=== PATIENT | male | born 1995 | race African-American/Black ===

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

== ENCOUNTER 2017-05-20 10:12 | Emergency (ER) | payer MEDICAID ==
[~2017-05-20] VITALS: Ht 182.9 cm; Wt 95.3 kg
[2017-05-20] MEDS ORDERED: Oseltamivir 75mg cap ORAL STA (10:33)
[2017-05-20 10:34] VITALS: BP 113/73
--- NOTE | 2017-05-20 10:34 | Emergency Room Report ---
History of Present Illness General Chief Complaint: Flu Like Symptoms Source: Patient, Medical Record Present Illness HPI Patient with several days of sore throat, muscle aches, headache, feeling feverish. No flu shot. Minimal productive phlegm. No NVD. No rashes. Headache rated 6/10, mostly constant. No medications taken. Hears himself breathing but denies wheezes. No dysuria. No major medical problems. Allergies: Coded Allergies: No Known Allergies (Unverified , 09/25/13) Patient History Past Medical History: see triage record Social History: Denies: smoking Social History Narrative at home Reviewed Nursing Documentation: PMH: Agreed; PSxH: Agreed Nursing Documentation-PMH Past Medical History: No History, Except For Review of Systems All Other Systems: negative except mentioned in HPI Physical Exam Vital Signs Date Time Temp Pulse Resp B/P (MAP) Pulse Ox O2 Delivery O2 Flow Rate FiO2 05/20/17 10:19 98.2 87 18 116/71 96 Room Air 98.2 General Appearance: well appearing, no apparent distress Head: normocephalic, atraumatic ENT: hearing grossly normal, normal voice, moist mucus membranes, pharyngeal erythema Neck: full range of motion, supple Respiratory: no respiratory distress, speaking full sentences, other - no wheezing Musculoskeletal: no calf tenderness Neurologic: alert, normal gait Psychiatric: mood/affect normal Skin: no rash Medical Decision Making Diagnostic Impression: Primary Impression: Influenza ER Course Patient with URI sy. DDx: viral, influenza, bronchitis amongst others. Symptom complex suggest influenza. No bronchospasm or evidence of pneumonia. Treated for pain and with Tamiflu. Improved, Patient stable for outpatient observation and treatment. Last Vital Signs Date Time Temp Pulse Resp B/P (MAP) Pulse Ox O2 Delivery O2 Flow Rate FiO2 05/20/17 10:50 98.2 90 18 113/73 96 Room Air 208.8 Status: improved Disposition: HOME, SELF-CARE Condition: Stable Scripts Ibuprofen* (MOTRIN*) 600 Mg Tablet 600 MG ORAL Q6H PRN for For Pain, #16 TAB Prov: Phil Landaverde M.D. 05/20/17 Guaifenesin/Codeine Phos* (ROBITUSSIN AC*) 118 Ml Liquid 1 TSP ORAL Q6H PRN for For Cough, #90 ML 0 Refills Prov: Phil Landaverde M.D. 05/20/17 Oseltamivir Phosphate (Tamiflu) 75 Mg Capsule 75 MG ORAL TWICE A DAY, #10 CAP Prov: Phil Landaverde M.D. 05/20/17 Phil Landaverde M.D. May 20, 2017 10:34
[2017-05-20] MEDS ORDERED: GUAIFENESIN-CO118 M1 ORAL (10:36)
[2017-05-20] MEDS ORDERED: TAMIFLU75 MG ORAL (10:36)
[2017-05-20] MEDS ORDERED: IBUPROFEN600 MG ORAL (10:36)
[2017-05-20 10:50] VITALS: BP 113/73
== END 2017-05-20 10:50 | disposition home or self-care (01) ==
LOC: EMR 10:45
DX: J11.1 Influenza due to unidentified influenza virus with other respiratory manifestations (principal)
CPT/HCPCS: 99284

== ENCOUNTER 2017-11-22 17:52 | Emergency (ER) | payer MEDICAID ==
[~2017-11-22] VITALS: Ht 182.9 cm; Wt 95.3 kg
[~2017-11-22 17:52] MED LIST changes: +GUAIFENESIN-CO118 M1 ORAL; +IBUPROFEN600 MG ORAL; +TAMIFLU75 MG ORAL
[2017-11-22 18:00] VITALS: BP 139/68
[2017-11-22] MEDS ORDERED: Lidocaine 2% Visc 15ml soln ORAL ONE (19:30)
[2017-11-22 20:32] LABS: BASOPHILS % (AUTO) 1.4 % (0.0-2.0); EOSINOPHILS % (AUTO) 0.2 % (0.0-3.0); HEMATOCRIT 47.3 % (42.0-52.0); LYMPHOCYTES % (AUTO) 8.4 % (20.0-45.0); MEAN CORPUSCULAR VOLUME 79 FL (80-99); MONOCYTES % (AUTO) 5.4 % (1.0-10.0); NEUTROPHILS % (AUTO) 84.5 % (45.0-75.0); PLATELET COUNT 177 K/UL (150-450); RED BLOOD COUNT 5.96 M/UL (4.70-6.10); RED CELL DISTRIBUTION WIDTH 12.6 % (11.6-14.8); WHITE BLOOD COUNT 12.6 K/UL (4.8-10.8)
[2017-11-22 20:46] LABS: ANION GAP 10 mmol/L (5-15); BLOOD UREA NITROGEN 8 mg/dL (7-18); CALCIUM 9.8 MG/DL (8.5-10.1); CARBON DIOXIDE 27 MMOL/L (21-32); CHLORIDE 101 MMOL/L (98-107); CREATININE 1.1 MG/DL (0.55-1.30); POTASSIUM 3.9 MMOL/L (3.5-5.1); SODIUM 138 MMOL/L (136-145)
--- NOTE | 2017-11-22 20:53 | Emergency Room Report ---
History of Present Illness General Chief Complaint: Upper Respiratory Illness Source: Patient Present Illness HPI 22-year-old male presents to the emergency department complaining of 10 out of 10 in severity sore throat, thigh pain, chest pain and headache 2 days. Patient reports that his initial symptom was the sore throat and continues to be most prominent. Patient states other symptoms have been progressive. Patient reports subjective fevers he denies chills he states he has not taken any medication today. Patient also reports history of sickle cell disease, states he hasn't had a flare up since early teens. Patient denies recent travel or ill contacts. Patient states his pain is exacerbated upon swallowing food or water. He has not found any relieving factors at this time. He denies photophobia, neck pain or stiffness. Patient denies palpitations or shortness of breath. Denies cardiac history. pt. states that over the last hour his thighs have become very painful and stiff to the point that he can barely walk. Denies similar episodes of leg pain in the past. Allergies: Coded Allergies: No Known Allergies (Unverified , 09/25/13) Patient History Past Medical History: see triage record Past Surgical History: none Pertinent Family History: none Immunizations: UTD Reviewed Nursing Documentation: PMH: Agreed; PSxH: Agreed Nursing Documentation-PMH Past Medical History: No History, Except For Review of Systems All Other Systems: negative except mentioned in HPI Physical Exam Vital Signs Date Time Temp Pulse Resp B/P (MAP) Pulse Ox O2 Delivery O2 Flow Rate FiO2 11/22/17 17:56 99.0 115 20 139/68 95 Room Air 99.0 Sp02 EP Interpretation: reviewed, normal General Appearance: no apparent distress, alert, GCS 15, non-toxic Head: normocephalic, atraumatic Eyes: bilateral eye normal inspection, bilateral eye PERRL ENT: hearing grossly normal, normal voice, TMs + canals normal, uvula midline, dry mucus membranes, tonsillar swelling, pharyngeal erythema, tonsillar exudate - exudate noted on the right tonsil. Neck: full range of motion, no meningismus Respiratory: chest non-tender, lungs clear, normal breath sounds, no respiratory distress, no wheezing, speaking full sentences Cardiovascular #1: no edema, normal capillary refill, tachycardia Gastrointestinal: normal bowel sounds, non tender, soft Musculoskeletal: back normal, normal range of motion, other - pt. has compensatory gait/ limping, tender - bilateral thighs and knees. Neurologic: alert, oriented x3, responsive, motor strength/tone normal, sensory intact, speech normal, grossly normal Psychiatric: judgement/insight normal Skin: normal color, no rash, warm/dry, well hydrated Lymphatic: no adenopathy Medical Decision Making PA Attestation Dr. Taylor is my supervising Physician whom patient management has been discussed with. Diagnostic Impression: Primary Impression: Pharyngitis, acute Qualified Codes: J02.0 - Streptococcal pharyngitis Additional Impression: Myalgia ER Course 22-year-old male presents to the emergency department complaining of 10 out of 10 in severity sore throat, thigh pain, chest pain and headache 2 days. Patient reports that his initial symptom was the sore throat and continues to be most prominent. Patient states other symptoms have been progressive. Patient reports subjective fevers he denies chills he states he has not taken any medication today. Patient also reports history of sickle cell disease, states he hasn't had a flare up since early teens. Patient denies recent travel or ill contacts. Patient states his pain is exacerbated upon swallowing food or water. He has not found any relieving factors at this time. He denies photophobia, neck pain or stiffness. Patient denies palpitations or shortness of breath. Denies cardiac history. pt. states that over the last hour his thighs have become very painful and stiff to the point that he can barely walk. Denies similar episodes of leg pain in the past. Ddx considered but are not limited to: pharyngitis, strep, [employer], ludwigs angina, URI, sickle cell crisis, acute chest syndrome, dehydration just to name a few. Vital signs: pt. is tachycardic, remaining vs are WNL, pt. is afebrile H&PE are most consistent with: pharyngitis presumed strep.- also suspicious for possible sickle cell exacerbation. ORDERS: -Reticulocyte count WNL -CBC: normal H&H, elevated wbc's 12.9 -CMP: unremarkable - electrolytes ok -EK Sinus tach- reviewed by Dr. Ochoa -CXR: unremarkable ED INTERVENTIONS: -1 liter NS Bolus -Tylenol PO - Viscous lidocaine DISCHARGE: At this time pt. is stable for d/c to home. Will provide printed patient care instructions, and any necessary prescriptions. Care plan and follow up instructions have been discussed with the patient prior to discharge. Labs Test 11/22/17 19:54 White Blood Count 12.6 K/UL (4.8-10.8) Red Blood Count 5.96 M/UL (4.70-6.10) Hemoglobin 16.0 G/DL (14.2-18.0) Hematocrit 47.3 % (42.0-52.0) Mean Corpuscular Volume 79 FL (80-99) Mean Corpuscular Hemoglobin 26.8 PG (27.0-31.0) Mean Corpuscular Hemoglobin Concent 33.8 G/DL (32.0-36.0) Red Cell Distribution Width 12.6 % (11.6-14.8) Platelet Count 177 K/UL (150-450) Mean Platelet Volume 7.7 FL (6.5-10.1) Neutrophils (%) (Auto) 84.5 % (45.0-75.0) Lymphocytes (%) (Auto) 8.4 % (20.0-45.0) Monocytes (%) (Auto) 5.4 % (1.0-10.0) Eosinophils (%) (Auto) 0.2 % (0.0-3.0) Basophils (%) (Auto) 1.4 % (0.0-2.0) Reticulocyte Count 1.1 % (0.0-2.0) Sodium Level 138 MMOL/L (136-145) Potassium Level 3.9 MMOL/L (3.5-5.1) Chloride Level 101 MMOL/L (98-107) Carbon Dioxide Level 27 MMOL/L (21-32) Anion Gap 10 mmol/L (5-15) Blood Urea Nitrogen 8 mg/dL (7-18) Creatinine 1.1 MG/DL (0.55-1.30) Estimat Glomerular Filtration Rate > 60 mL/min (>60) Glucose Level 108 MG/DL (74-106) Calcium Level 9.8 MG/DL (8.5-10.1) EKG Diagnostic Results EP Interpretation: Dr. Ochoa Rate: tachycardiac - 109bpm Rhythm: NSR ST Segments: no acute changes ASA given to the pt in ED: No PA Scribe Text This Interpretation was scribed by ALEX Barclay. Chest X-Ray Diagnostic Results Chest X-Ray Diagnostic Results : Chest X-Ray Ordered: Yes # of Views/Limited/Complete: 1 View Indication: Chest Pain EP Interpretation: Yes ALEX Xray: Interpretation reviewed, by supervising MD, and agrees with findings. Interpretation: no consolidation, no effusion, no pneumothorax, no acute cardiopulmonary disease Impression: No acute disease Electronically Signed by: Mary Barclay PA-C Last Vital Signs Date Time Temp Pulse Resp B/P (MAP) Pulse Ox O2 Delivery O2 Flow Rate FiO2 11/22/17 19:31 99.0 11/22/17 18:00 115 20 Room Air 11/22/17 18:00 139/68 95 Disposition: HOME, SELF-CARE Condition: Stable Scripts Acetaminophen* (TYLENOL EXTRA STRENGTH*) 500 Mg Tablet 500 MG ORAL Q6H, #20 TAB 0 Refills Prov: Mary Barclay 11/22/17 Amoxicillin* (AMOXIL*) 500 Mg Capsule 500 MG ORAL BID for 10 Days, #20 CAP Prov: Mary Barclay 11/22/17 Lidocaine HCl 2% Viscous (Lidocaine HCl 2% Viscous) 100 Ml Solution 15 ML ORAL QID for pain, #240 ML Prov: Mary Barclay 11/22/17 Referrals: [facility]ERR[facility] (PCP) Departure Forms: Return to Work Return to Work Date: Nov 26, 2017 Work Restrictions: None Return to Full Activity: Nov 26, 2017 Patient Instructions: Pharyngitis Additional Instructions: Take medications as directed. Follow up with a Primary Care Provider in 3-5 days, even if your symptoms have resolved. --Please review list of primary care clinics, if you do not already have a primary care provider Return sooner to ED if new symptoms occur, or current symptoms become worse. Do not drink alcohol, drive, or operate heavy machinery while taking [ ] as this may cause drowsiness. - Please note that this Emergency Department Report was dictated using Wiseryouhone operator technology software, occasionally this can lead to erroneous entry secondary to interpretation by the dictation equipment. Mary Barclay Nov 22, 2017 20:52
--- NOTE | 2017-11-22 21:24 | Diagnostic Imaging Report ---
PROCEDURE: FILM CXR 1 VIEW HISTORY: 22-year-old male with chest pain. COMPARISON: Chest radiograph 09/25/2013 TECHNIQUE: Frontal view of the chest was obtained. FINDINGS: Limited by technique. Cardiomediastinal silhouette is within normal limits. No evidence of focal consolidation, pleural effusion, or pneumothorax. Bones are unremarkable for age. IMPRESSION: Unremarkable single view chest.
[2017-11-22] MEDS ORDERED: LIDOCAINE VISC100 ML ORAL (21:43)
[2017-11-22] MEDS ORDERED: AMOXICILLIN500 MG ORAL (21:43)
[2017-11-22] MEDS ORDERED: TYLENOL EXTRA500 MG ORAL (21:43)
[2017-11-22 21:49] VITALS: BP 128/63
[2017-11-22 21:50] VITALS: BP 128/63
== END 2017-11-22 21:51 | disposition home or self-care (01) ==
LOC: EMR 18:34
DX: J02.0 Streptococcal pharyngitis (principal); M79.10 Myalgia, unspecified site
CPT/HCPCS: 36415; 71045; 80048; 85025; 85044; 93005; 96360; 99284

== ENCOUNTER 2018-04-15 03:53 | Emergency (ER) | payer MEDICAID ==
[~2018-04-15] VITALS: Ht 180.3 cm; Wt 106.6 kg
[~2018-04-15 03:53] MED LIST changes: +LIDOCAINE VISC100 ML ORAL; +TYLENOL EXTRA500 MG ORAL
[2018-04-15 04:03] VITALS: BP 113/66
--- NOTE | 2018-04-15 04:03 | NUR ---
ED Nurse Note: Patient ambulated to ED with c/o headache and chest pain upon coughing since 0630 yesterday. pt stated 10/10 headache when coughing and 8/10 chest pain when coughing. pt vs stable. will continue to monitor
[2018-04-15] MEDS ORDERED: TAMIFLU75 MG ORAL (04:25)
[2018-04-15] MEDS ORDERED: IBUPROFEN600 MG ORAL (04:25)
--- NOTE | 2018-04-15 04:26 | Emergency Room Report ---
History of Present Illness General Chief Complaint: Upper Respiratory Illness Source: Patient Present Illness HPI This is a 23-year-old male with a history of sickle cell trait. Fever, cough, chest pain, headache. Onset yesterday. He said he had a very high fever. It broke with TheraFlu. No nausea no vomiting. Has a nonproductive cough. Having chest pain and headache. Also with congestion. Denies any other complaint. no Sick contact. Allergies: Coded Allergies: No Known Allergies (Unverified , 09/25/13) Patient History Past Medical History: see triage record, old chart reviewed Past Surgical History: none Pertinent Family History: none Social History: Denies: smoking Immunizations: other Reviewed Nursing Documentation: PMH: Agreed Nursing Documentation-PMH Past Medical History: No History, Except For Review of Systems Constitutional: Reports: chills, fever Eye: Denies: eye pain, blurred vision ENT: Reports: nose congestion; Denies: ear pain, throat swelling Respiratory: Reports: cough; Denies: shortness of breath Cardiovascular: Reports: chest pain; Denies: palpitations Gastrointestinal: Denies: abdominal pain, diarrhea, nausea, vomiting Musculoskeletal: Denies: back pain, joint pain Skin: Denies: rash Neurological: Denies: headache, numbness Endocrine: Denies: increased thirst, increased urine Hematologic/Lymphatic: Denies: easy bruising All Other Systems: negative except mentioned in HPI Physical Exam Vital Signs Date Time Temp Pulse Resp B/P (MAP) Pulse Ox O2 Delivery O2 Flow Rate FiO2 04/15/18 03:56 98.1 97 15 113/66 94 Room Air vitals normal Sp02 EP Interpretation: reviewed, normal General Appearance: well appearing, no apparent distress, alert Head: normocephalic, atraumatic Eyes: bilateral eye PERRL, bilateral eye EOMI ENT: hearing grossly normal, normal pharynx Neck: full range of motion, supple, no meningismus Respiratory: chest non-tender, lungs clear, normal breath sounds Cardiovascular #1: regular rate, rhythm, no murmur Gastrointestinal: normal bowel sounds, non tender, no mass, no organomegaly, no bruit, non-distended Musculoskeletal: back normal, gait/station normal, normal range of motion Psychiatric: mood/affect normal Skin: warm/dry Medical Decision Making Diagnostic Impression: Primary Impression: Influenza-like illness ER Course Patient with flulike illness. Because of sickle cell trait, we'll put him on Tamiflu. No evidence of any sepsis, meningitis, pneumonia to name a few. Last Vital Signs Date Time Temp Pulse Resp B/P (MAP) Pulse Ox O2 Delivery O2 Flow Rate FiO2 04/15/18 04:03 97 15 Room Air 04/15/18 04:03 98.1 113/66 94 Status: improved Disposition: HOME, SELF-CARE Condition: Stable Scripts Ibuprofen* (MOTRIN*) 600 Mg Tablet 600 MG ORAL THREE TIMES A DAY, #30 TAB 0 Refills Prov: Deion Salinas MD 04/15/18 Oseltamivir Phosphate (Tamiflu) 75 Mg Capsule 75 MG ORAL TWICE A DAY, #10 CAP Prov: Deion Salinas MD 04/15/18 Referrals: [facility]ERR[facility] (PCP) Additional Instructions: Increase fluids. Rest. Follow-up with your Dr. in 3-5 days if not better. Return if symptom worsen. Deion Salinas MD Apr 15, 2018 04:26
[2018-04-15 04:28] VITALS: BP 113/66
--- NOTE | 2018-04-15 04:28 | NUR ---
ER DISCHARGE NOTE: Patient is cleared to be discharged per ERMD, pt is aox4, on room air, with stable vital signs. pt was given dc and prescription instructions, pt was able to verbalize understanding, pt id band removed without complications. pt is able to ambulate with steady gait. pt took all belongings.
== END 2018-04-15 04:28 | disposition home or self-care (01) ==
LOC: EMR 04:13
DX: J11.1 Influenza due to unidentified influenza virus with other respiratory manifestations (principal)
CPT/HCPCS: 99282

== ENCOUNTER 2018-06-21 12:09 | Emergency (ER) | payer SELFPAY ==
[~2018-06-21] VITALS: Ht 182.9 cm; Wt 102.1 kg
[2018-06-21] MEDS ORDERED: NKM (12:18)
[2018-06-21 12:22] VITALS: BP 117/73
--- NOTE | 2018-06-21 12:23 | NUR ---
ED Nurse Note: Patient walked in to ER c/o both hands rash for 2 weeks. pt aao x4 and ambulatory. both hands rash noted without bleeding or swelling. pt c/o itching as well. calm and cooperative.
--- NOTE | 2018-06-21 12:54 | Emergency Room Report ---
History of Present Illness General Chief Complaint: Skin Rash/Abscess Present Illness HPI 23-year-old male presents to the emergency department complaining of itchy nonpainful rash to the bilateral hands with small little bumps progressive 2 days. 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 Pt. denies fevers, chills or swollen tender lymph nodes. Denies lesions/rashes elsewhere on the body. Denies new medications or body washes or creams. Denies swelling of the lips, tongue , throat or airway. Denies wheezing, or shortness of breath. Denies recent travel, recent illness or ill contacts. denies blisters, oral lesions, or sloughing of the skin. Denies hx of similar symptoms in the past. Allergies: Coded Allergies: No Known Allergies (Unverified , 09/25/13) Patient History Past Medical History: see triage record Past Surgical History: none Pertinent Family History: none Immunizations: UTD Reviewed Nursing Documentation: PMH: Agreed; PSxH: Agreed Review of Systems All Other Systems: negative except mentioned in HPI Physical Exam Vital Signs Date Time Temp Pulse Resp B/P (MAP) Pulse Ox O2 Delivery O2 Flow Rate FiO2 06/21/18 12:15 98.2 60 14 93 06/21/18 12:22 117/73 Room Air Sp02 EP Interpretation: reviewed, normal General Appearance: no apparent distress, alert, GCS 15, non-toxic Head: normocephalic, atraumatic Eyes: bilateral eye normal inspection, bilateral eye PERRL ENT: hearing grossly normal, normal voice, other - no swelling of the lips or tongue Neck: full range of motion, other Respiratory: chest non-tender, lungs clear, normal breath sounds, no wheezing, speaking full sentences Cardiovascular #1: regular rate, rhythm Musculoskeletal: back normal, gait/station normal, normal range of motion, non- tender Neurologic: alert, oriented x3, responsive, motor strength/tone normal, sensory intact, speech normal, grossly normal Psychiatric: judgement/insight normal Skin: normal color, warm/dry, well hydrated, rash - papular rash on the bilateral hands, on digits, interdigitally and on dorsum of the hands. does not pass the wrist. no blisters or vesicles. Lymphatic: no adenopathy Medical Decision Making PA Attestation Dr. Taylor is my supervising Physician whom patient management has been discussed with. Diagnostic Impression: Primary Impression: Rash and other nonspecific skin eruption ER Course 23-year-old male presents to the emergency department complaining of itchy nonpainful rash to the bilateral hands with small little bumps progressive 2 days. 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 Pt. denies fevers, chills or swollen tender lymph nodes. Denies lesions/rashes elsewhere on the body. Denies new medications or body washes or creams. Denies swelling of the lips, tongue , throat or airway. Denies wheezing, or shortness of breath. Denies recent travel, recent illness or ill contacts. denies blisters, oral lesions, or sloughing of the skin. Denies hx of similar symptoms in the past. Ddx considered but are not limited to cellulitis, scabies, shingles, varicella, dermatitis, urticaria, eczema, tinea, viral exanthem, SJS Vital signs: are WNL, pt. is afebrile H&PE are most consistent with dermatitis. ORDERS: none required at this time, the diagnosis is clinical ED INTERVENTIONS: None required at this time. DISCHARGE: At this time pt. is stable for d/c to home. Will provide printed patient care instructions, and any necessary prescriptions. Care plan and follow up instructions have been discussed with the patient prior to discharge. Last Vital Signs Date Time Temp Pulse Resp B/P (MAP) Pulse Ox O2 Delivery O2 Flow Rate FiO2 06/21/18 12:22 98.2 71 14 117/73 93 Room Air Disposition: HOME, SELF-CARE Condition: Stable Scripts Triamcinolone Acet (Triamcinolone Acetonide) 15 Gm Cream..g. 15 APPLIC APPLIC BID, #15 GM 2 Refills Prov: Mary Barclay 06/21/18 Permethrin* (ELIMITE*) 60 Gm Cream..g. 1 APPLIC TOPIC ONCE, #60 GM 0 Refills Apply cream from head to toe; leave on for 8-14 hours before washing off with water; may reapply in 1 week if live mites appear. Prov: Mary Barclay 06/21/18 Departure Forms: Return to Work Return to Work Date: June 24, 2018 Work Restrictions: None Other Restrictions: May return Sooner if Symptoms have resolved. Return to Full Activity: June 24, 2018 Patient Instructions: Rash Additional Instructions: Take medications as directed. Follow up with a Primary Care Provider in 3-5 days, even if your symptoms have resolved. --Please review list of primary care clinics, if you do not already have a primary care provider Return sooner to ED if new symptoms occur, or current symptoms become worse. - Please note that this Emergency Department Report was dictated using [employer] of way clerk technology software, occasionally this can lead to erroneous entry secondary to interpretation by the dictation equipment. Mary Barclay June 21, 2018 12:54
[2018-06-21] MEDS ORDERED: PERMETHRIN60 GM TOPIC (12:56)
[2018-06-21] MEDS ORDERED: KENALOG 0.025%15 GM APPLIC (12:56)
[2018-06-21 13:04] VITALS: BP 104/76
--- NOTE | 2018-06-21 13:06 | NUR ---
ER DISCHARGE NOTE: Patient is cleared to be discharged per ERPA, pt is aox4, on room air, with stable vital signs. pt was given dc and prescription instructions, pt was able to verbalize understanding, pt id band removed. pt is able to ambulate with steady gait. pt took all belongings.
== END 2018-06-21 13:10 | disposition home or self-care (01) ==
LOC: EMR 12:50
DX: R21 Rash and other nonspecific skin eruption (principal)
CPT/HCPCS: 99282

== ENCOUNTER 2018-08-15 21:58 | Emergency (ER) | payer OTHER ==
[~2018-08-15] VITALS: Ht 180.3 cm; Wt 105.2 kg
[~2018-08-15 21:58] MED LIST changes: +KENALOG 0.025%15 GM APPLIC; +PERMETHRIN60 GM TOPIC
--- NOTE | 2018-08-15 22:10 | NUR ---
ED Nurse Note: PATIENT AMBULATED TO ED WITH CANE C/O WORK INJURY 08/08/18 1800. SEEN AT WORK CLINIC YESTERDAY; DIAGNOSED WITH FX TAILBONE. REFFERED TO [facility] TO RULE OUT INTERNAL BLEEDING. Pt is AO x 4times, VSS, on room air no distress. ERMD seen Pt at bedside.
[2018-08-15] MEDS ORDERED: CYCLOBENZAPRINE10 MG ORAL (22:12)
[2018-08-15] MEDS ORDERED: IBUPROFEN600 MG ORAL (22:12)
--- NOTE | 2018-08-15 22:29 | Emergency Room Report ---
History of Present Illness General Chief Complaint: Back Injury Source: Patient Present Illness HPI Is a 23-year-old male with no past medical history. He presents with chief complaint of back pain. He injured at work on August 08, 2017. Fell from a lift truck about 5 and half feet up and landed on his buttock. He saw his primary care doctor who said that he had a fractured tailbone. He was off work for a week and came back to work and saw the Workmen's Comp. doctor yesterday. He had restriction for no lifting, squatting, bending or walking up and down steps. At work if he stand for some amount of time he has pain. Pain is to the right buttock rating down his leg. Unable to get comfortable. Pain is 9 out of 10. No relief with ibuprofen or Flexeril. He saw his a pit hand who recommended he come to the hospital for further testing. No incontinence of bowel or urine. No numbness. Allergies: Coded Allergies: No Known Allergies (Unverified , 09/25/13) Patient History Past Medical History: see triage record, old chart reviewed Past Surgical History: none Pertinent Family History: none Social History: Denies: smoking Immunizations: other Reviewed Nursing Documentation: PMH: Agreed; PSxH: Agreed Nursing Documentation-PMH Past Medical History: No History, Except For Review of Systems Eye: Denies: eye pain, blurred vision ENT: Denies: ear pain, nose congestion, throat swelling Respiratory: Denies: cough, shortness of breath Cardiovascular: Denies: chest pain, palpitations Gastrointestinal: Denies: abdominal pain, diarrhea, nausea, vomiting Musculoskeletal: Reports: back pain; Denies: joint pain Skin: Denies: rash Neurological: Denies: headache, numbness Endocrine: Denies: increased thirst, increased urine Hematologic/Lymphatic: Denies: easy bruising All Other Systems: negative except mentioned in HPI Physical Exam Vital Signs Date Time Temp Pulse Resp B/P (MAP) Pulse Ox O2 Delivery O2 Flow Rate FiO2 08/15/18 22:05 99.0 104 22 119/72 (88) 96 Room Air Vitals unremarkable Sp02 EP Interpretation: reviewed, normal General Appearance: well appearing, no apparent distress, alert Head: normocephalic, atraumatic Eyes: bilateral eye PERRL, bilateral eye EOMI ENT: hearing grossly normal, normal pharynx Neck: full range of motion, supple, no meningismus Respiratory: chest non-tender, lungs clear, normal breath sounds Cardiovascular #1: regular rate, rhythm, no murmur Gastrointestinal: normal bowel sounds, non tender, no mass, no organomegaly, no bruit, non-distended Musculoskeletal: back normal, normal range of motion, tender - Over right buttock coccyx area Neurologic: alert, oriented x3 Psychiatric: mood/affect normal Medical Decision Making Diagnostic Impression: Primary Impression: Injury of back Qualified Codes: S39.92XA - Unspecified injury of lower back, initial encounter Additional Impression: Lumbar strain Qualified Codes: S39.012A - Strain of muscle, fascia and tendon of lower back , initial encounter ER Course Patient with back pain from fall and injury. No fracture dislocation. Will discharge home. CT/MRI/US Diagnostic Results CT/MRI/US Diagnostic Results : Imaging Test Ordered: CT pelvis Impression Neg Per radiologist Last Vital Signs Date Time Temp Pulse Resp B/P (MAP) Pulse Ox O2 Delivery O2 Flow Rate FiO2 08/15/18 22:05 99.0 104 22 119/72 (88) 96 Room Air Status: improved Disposition: HOME, SELF-CARE Condition: Stable Scripts Hydrocodone/Acetaminophen 5-325* (HYDROCODONE/ACETAMINOPHEN 5-325*) 1 Each Tablet 1 TAB ORAL Q6H PRN for For Pain, #20 TAB 0 Refills Prov: Deion Salinas MD 08/15/18 Patient Instructions: Back Pain, Adult Additional Instructions: Follow-up with your DrJamin as scheduled on Friday. Return if worse. Deion Salinas MD Aug 15, 2018 22:29
[2018-08-15] MEDS ORDERED: HYDROmorphone 1mg/ml Carpuject IM ONE (22:30)
--- NOTE | 2018-08-15 22:41 | NUR ---
ED Nurse Note: Pt went to CT scan.
[2018-08-15 22:53] VITALS: BP 129/87
--- NOTE | 2018-08-15 23:24 | Diagnostic Imaging Report ---
EXAM: CT Pelvis Without Intravenous Contrast CLINICAL HISTORY: Trauma. TECHNIQUE: Axial computed tomography images of the pelvis without intravenous contrast. Coronal and sagittal reformations provided. CTDI is 20.34 mGy and DLP is 592 mGy-cm. One or more of the following dose reduction techniques were used: automated exposure control, adjustment of the mA and/or kV according to patient size, use of iterative reconstruction technique. COMPARISON: No relevant prior studies available. FINDINGS: Bones/joints: Osseous angulation at sacral tip without obvious cortical break/fracture. No definite acute fracture of the pelvis. No hip dislocation. No widening of sacroiliac joints or pubic symphysis. Soft tissues: Unremarkable as visualized. Pelvic contents: Unremarkable as visualized. No significant bladder wall thickening. No free fluid. Normal appendix. Visualized bowel loops are unremarkable. IMPRESSION: Osseous angulation at sacral tip without obvious cortical break/fracture. No definite acute fracture of the pelvis. No hip dislocation or pelvic malalignment.
[2018-08-15] MEDS ORDERED: HYDROCODON-ACE1 EA15 ORAL (23:39)
[2018-08-15 23:57] VITALS: BP 137/78
--- NOTE | 2018-08-15 23:59 | NUR ---
ER DISCHARGE NOTE: Patient is cleared to be discharged per ERMD, pt is aox4, on room air, with stable vital signs. pt was given dc and prescription instructions, pt was able to verbalize understanding, pt id band removed without complications. pt is able to ambulate with steady gait with cane. pt took all belongings. Girl friend will drive Pt home.
[2018-08-16] VITALS: BP 137/78
== END 2018-08-16 | disposition home or self-care (01) ==
LOC: EMR 22:30
DX: S39.92XA Unspecified injury of lower back, initial encounter (principal); S39.012A Strain of muscle, fascia and tendon of lower back, initial encounter; W17.89XA Other fall from one level to another, initial encounter; Y92.9 Unspecified place or not applicable; Y99.0 Civilian activity done for income or pay
CPT/HCPCS: 72192; 96372; 99284; J1170